=== PATIENT | female | born 1985 | race Caucasian/White ===

== ENCOUNTER 2017-07-07 05:32 | Emergency (ER) | payer BC ==
[~2017-07-07] VITALS: Ht 154.9 cm; Wt 75.6 kg
[~2017-07-07 05:32] MED LIST: Motrin PO; Percocet 5/325,Endoc PO
[2017-07-07 06:34] LABS: HEMATOCRIT 37.4 % (36.0-46.0); HEMOGLOBIN 12.2 G/DL (11.9-15.5); MCH 28.4 PG (29.0-34.0); MCHC 32.6 G/DL (30.0-36.0); PLATELET COUNT 210 K/uL (156-360); RBC DIS.WIDTH-CV 13.2 % (11.8-14.6); RBC DIS.WIDTH-SD 41.4 % (39-53); WHITE BLOOD COUNT 6.2 K/uL (4.1-10.2)
[2017-07-07 06:59] LABS: D-DIMER ELISA < 150.00 ng/mLDDU (<230)
[2017-07-07 07:13] LABS: TROP-I INTERPRETATION NEGATIVE; TROPONIN-I < 0.01 ng/mL (0.0-0.30)
[2017-07-07 07:20] LABS: CHLORIDE 108 MEQ/L (99-109); CREATININE 0.8 MG/DL (0.6-1.3); GFR ESTIMATE (CALCULATED) > 59 mL/min/; GLUCOSE 97 mg/dL (70-99); POTASSIUM 4.3 MEQ/L (3.7-5.4); SODIUM 138 MEQ/L (136-147); UREA NITROGEN (BUN) 25 mg/dL (9-23)
[2017-07-07 08:58] LABS: TROP-I INTERPRETATION NEGATIVE; TROPONIN-I < 0.01 ng/mL (0.0-0.30)
[2017-07-07 09:40] VITALS: BP 118/80
== END 2017-07-07 09:40 | disposition home or self-care (01) ==
LOC: EME 05:32
PROVIDERS: Emergency Medicine
DX: R07.89 Other chest pain (principal); J45.909 Unspecified asthma, uncomplicated; F17.200 Nicotine dependence, unspecified, uncomplicated; Z91.040 Latex allergy status; Z91.048 Other nonmedicinal substance allergy status
CPT/HCPCS: 71046; 80048; 84484; 85027; 85379; 93005; 99281; 99285